=== PATIENT | female | born 1990 | race Caucasian/White ===

== ENCOUNTER 2017-08-17 13:04 | Inpatient (IN) | payer OTHER ==
[2017-08-17] MEDS ORDERED: LACTATED RINGER'S 1,000 ML IV (15:27)
[2017-08-17] MEDS ORDERED: CA GLUCONATE (GM) 10% 10ML INJ IV (15:30)
[2017-08-17 16:16] LABS: ADD MAN DIFF? NO
[2017-08-17 16:19] LABS: WHITE BLOOD COUNT 8.5 10^3/ul (4.8-10.8)
[2017-08-17 16:19] LABS: BASOPHILS % 0.4 % (0.0-2.0); EOSINOPHILS % 0.5 % (0.0-7.0); HEMATOCRIT 25.8 % (37.0-47.0); HEMOGLOBIN 8.1 g/dl (12.0-16.0); LYMPHOCYTES # 1.7 10^3/ul (0.8-2.9); LYMPHOCYTES % 19.9 % (15.0-51.0); MEAN CORPUSCULAR HGB CONC 31.4 g/dl (32.0-37.0); MEAN CORPUSCULAR VOLUME 76.6 fl (82.0-101.0); MEAN PLATELET VOLUME 10.1 fl (7.4-10.4); MONOCYTE # 0.6 10^3/ul (0.3-0.9); MONOCYTES % 7.3 % (0.0-11.0); NEUTROPHIL # 6.1 10^3/ul (1.6-7.5); NEUTROPHILS % 71.7 % (39.0-77.0); PLATELET COUNT 257 10^3/UL (140-415); RED BLOOD COUNT 3.37 10^6/ul (4.20-5.40); RED CELL DISTRIBUTION WIDTH 16.8 % (11.5-14.5)
[2017-08-17 16:37] LABS: PARTIAL THROMBOPLASTIN TIME 26.4 Sec (25.0-35.0)
[2017-08-17] MEDS: DEXTROSE 5%-LR 1,000 ML IV (16:37)
[2017-08-17 16:38] LABS: ADD UMIC YES; UR ASCORBIC ACID NEGATIVE (NEGATIVE); UR BILIRUBIN (Dip) NEGATIVE (NEGATIVE); UR BLOOD (Dip) NEGATIVE (NEGATIVE); UR CLARITY CLOUDY (CLEAR); UR COLOR AMBER (YELLOW); UR GLUCOSE (Dip) NEGATIVE (NEGATIVE); UR KETONES (Dip) TRACE mg/dL (NEGATIVE); UR LEUKOCYTE ESTERASE (Dip) NEGATIVE Leu/ul (NEGATIVE); UR MUCUS MANY /HPF (NONE SEEN); UR NITRITE (Dip) NEGATIVE (NEGATIVE); UR RBC 2 /HPF (0-5); UR SPECIFIC GRAVITY (Dip) 1.035 (1.003-1.030); UR SQUAMOUS EPITHELIAL CELL FEW /HPF (FEW); UR TOTAL PROTEIN (Dip) 3+ mg/dl (NEGATIVE); UR UROBILINOGEN (Dip) NEGATIVE (NEGATIVE); UR WBC 7 /HPF (0-5)
[2017-08-17] MEDS: MAGNESIUM SULFATE 4 GM/100 ML 100 ML IV (16:42)
[2017-08-17] MEDS ORDERED: LABETALOL HCL 20MG INJ (16:46)
[2017-08-17] MEDS: LABETALOL HCL 20MG INJ IV (16:50)
[2017-08-17] MEDS: MAGNESIUM SULFATE 20 GM/500 ML 500 ML IV (16:57)
[2017-08-17] MEDS: ACETAMINOPHEN 325 MG TAB PO (16:58)
[2017-08-17] MEDS: BETAMET NA PHOS/AC(6 MG/ML) 5ML INJ IM (16:58)
[2017-08-17] MEDS ORDERED: LABETALOL HCL 20MG INJ IV (17:00)
[2017-08-17 17:29] LABS: ALANINE AMINOTRANSFERASE 22 IU/L (13-69); ALBUMIN 3.1 g/dl (3.3-4.9); ALKALINE PHOSPHATASE 94 IU/L (42-121); ANION GAP 10 (8-16); ASPARTATE AMINO TRANSFERASE 20 IU/L (15-46); BILIRUBIN,INDIRECT 0.3 mg/dl (0-1.1); BILIRUBIN,TOTAL 0.3 mg/dl (0.2-1.3); BLOOD UREA NITROGEN 14 mg/dl (7-20); CALCIUM 8.2 mg/dl (8.4-10.2); CARBON DIOXIDE 22 mmol/L (21-31); CHLORIDE 108 mmol/L (97-110); CREATININE 0.71 mg/dl (0.44-1.00); GLUCOSE 72 mg/dl (70-220); LACTATE DEHYDROGENASE 547 IU/L (313-618); PHOSPHORUS 3.6 mg/dl (2.5-4.9); POTASSIUM 4.2 mmol/L (3.5-5.1); SODIUM 136 mmol/L (135-144); TOTAL PROTEIN 6.1 g/dl (6.1-8.1)
[2017-08-17] MEDS: SOD FERRIC GLUC COMPLX 125 MG in SOD CHLORIDE 0.9% 100 ML IVPB (20:20)
[2017-08-17] MEDS ORDERED: FERROUS SULFATE (EC) 325 MG TAB PO (21:00)
[2017-08-17] MEDS: LABETALOL 200 MG TAB PO (21:12)
[2017-08-18] MEDS: ACETAMINOPHEN 325 MG TAB PO (01:17)
[2017-08-18 01:55] LABS: MAGNESIUM 6.2 mg/dl (1.7-2.5)
[2017-08-18] MEDS: MAGNESIUM SULFATE 20 GM/500 ML 500 ML IV (04:43)
[2017-08-18] MEDS: DEXTROSE 5%-LR 1,000 ML IV ×2 (07:19→19:10)
[2017-08-18] MEDS: LABETALOL 200 MG TAB PO ×2 (08:38→21:00)
[2017-08-18 08:40] LABS: MAGNESIUM 7.5 mg/dl (1.7-2.5)
[2017-08-18] MEDS: DOCUSATE SODIUM 100 MG CAP PO (09:00)
[2017-08-18] MEDS: PRENATAL VITAMIN PO (09:00)
[2017-08-18 09:29] LABS: ADD MAN DIFF? NO
[2017-08-18 09:33] LABS: WHITE BLOOD COUNT 8.1 10^3/ul (4.8-10.8)
[2017-08-18 09:33] LABS: BASOPHILS % 0.1 % (0.0-2.0); LYMPHOCYTES % 12.3 % (15.0-51.0); MEAN CORPUSCULAR HEMOGLOBIN 23.8 pg (29.0-33.0); MEAN CORPUSCULAR VOLUME 74.4 fl (82.0-101.0); MEAN PLATELET VOLUME 10.3 fl (7.4-10.4); MONOCYTE # 0.3 10^3/ul (0.3-0.9); MONOCYTES % 4.2 % (0.0-11.0); NEUTROPHIL # 6.7 10^3/ul (1.6-7.5); NEUTROPHILS % 82.4 % (39.0-77.0); NUCLEATED RED BLOOD CELLS% 0.2 /100WBC (0.0-0.0); PLATELET COUNT 301 10^3/UL (140-415); RED BLOOD COUNT 3.36 10^6/ul (4.20-5.40); RED CELL DISTRIBUTION WIDTH 16.9 % (11.5-14.5)
[2017-08-18 09:48] LABS: ALANINE AMINOTRANSFERASE 24 IU/L (13-69); ALKALINE PHOSPHATASE 104 IU/L (42-121); ANION GAP 12 (8-16); ASPARTATE AMINO TRANSFERASE 17 IU/L (15-46); BILIRUBIN,INDIRECT 0.3 mg/dl (0-1.1); BILIRUBIN,TOTAL 0.3 mg/dl (0.2-1.3); BLOOD UREA NITROGEN 10 mg/dl (7-20); CARBON DIOXIDE 19 mmol/L (21-31); CHLORIDE 103 mmol/L (97-110); CREATININE 0.67 mg/dl (0.44-1.00); GLUCOSE 129 mg/dl (70-220); POTASSIUM 4.2 mmol/L (3.5-5.1); SODIUM 130 mmol/L (135-144)
[2017-08-18] MEDS: BETAMET NA PHOS/AC(6 MG/ML) 5ML INJ IM (09:50)
[2017-08-18 10:12] LABS: INR 0.93; PARTIAL THROMBOPLASTIN TIME 22.7 Sec (25.0-35.0); PROTIME 12.6 Sec (11.9-14.9)
[2017-08-18] MEDS: LACTATED RINGER'S 1,000 ML IV (10:31)
[2017-08-18] MEDS: SOD CHLORIDE 0.9% 1,000 ML IV (11:11)
[2017-08-18 11:21] LABS: IMMEDIATE SPIN CROSSMATCH 1 4
[2017-08-18 13:47] LABS: MAGNESIUM 5.8 mg/dl (1.7-2.5)
[2017-08-18 15:02] LABS: COLLECTION PERIOD 24 hrs
[2017-08-18 15:25] LABS: COLLECTION PERIOD 24 hrs; SCRET 0.67 mg/dl (0.44-1.00)
[2017-08-18 15:26] LABS: VOLUME 1250 ml/24hrs; VOLUME 1250 mls
[2017-08-18 16:15] LABS: CREATININE 0.73 mg/dl (0.44-1.00)
[2017-08-18 16:39] LABS: CREATININE CLEARANCE 94.8 mls/min (84.0-162.0)
[2017-08-18 16:47] LABS: 24HR URINE TOTAL PROTEIN > 600.0 mg/24hrs (42.0-225.0)
[2017-08-18 17:43] LABS: MAGNESIUM 5.1 mg/dl (1.7-2.5)
[2017-08-18 20:41] LABS: HEPATITIS B SURFACE ANTIGEN NEGATIVE (NEGATIVE)
[2017-08-18 21:33] LABS: RAPID PLASMA REAGIN NONREACTIVE (NR)
[2017-08-19] MEDS: LACTATED RINGER'S 1,000 ML IV ×4 (02:32→19:00)
[2017-08-19] MEDS: NACL 0.9% 3 ML SYG IV ×3 (08:05→22:26)
[2017-08-19] MEDS: DEXTROSE 5%-LR 1,000 ML IV ×2 (08:30→21:50)
[2017-08-19] MEDS: PRENATAL VITAMIN PO (09:00)
[2017-08-19] MEDS: DOCUSATE SODIUM 100 MG CAP PO (09:00)
[2017-08-19] MEDS: LABETALOL 200 MG TAB PO ×2 (09:00→12:07)
[2017-08-19 14:12] LABS: ADD MAN DIFF? NO
[2017-08-19 14:17] LABS: BASOPHILS % 0.1 % (0.0-2.0); HEMOGLOBIN 10.5 g/dl (12.0-16.0); LYMPHOCYTES # 1.2 10^3/ul (0.8-2.9); LYMPHOCYTES % 9.9 % (15.0-51.0); MEAN CORPUSCULAR HEMOGLOBIN 25.5 pg (29.0-33.0); MEAN CORPUSCULAR HGB CONC 32.8 g/dl (32.0-37.0); MEAN CORPUSCULAR VOLUME 77.7 fl (82.0-101.0); MEAN PLATELET VOLUME 10.2 fl (7.4-10.4); MONOCYTE # 0.7 10^3/ul (0.3-0.9); MONOCYTES % 6.2 % (0.0-11.0); NEUTROPHIL # 9.8 10^3/ul (1.6-7.5); NUCLEATED RED BLOOD CELLS # 0.1 10^3/ul (0.0-0.0); NUCLEATED RED BLOOD CELLS% 0.5 /100WBC (0.0-0.0); PLATELET COUNT 291 10^3/UL (140-415); RED BLOOD COUNT 4.12 10^6/ul (4.20-5.40); RED CELL DISTRIBUTION WIDTH 18.6 % (11.5-14.5)
[2017-08-20] MEDS: LACTATED RINGER'S 1,000 ML IV ×3 (03:04→19:09)
[2017-08-20] MEDS: LABETALOL 200 MG TAB PO ×2 (06:51→18:46)
[2017-08-20] MEDS: NACL 0.9% 3 ML SYG IV ×2 (08:05→18:49)
[2017-08-20] MEDS: PRENATAL VITAMIN PO (09:06)
[2017-08-20] MEDS: DOCUSATE SODIUM 100 MG CAP PO (09:06)
[2017-08-20] MEDS: DEXTROSE 5%-LR 1,000 ML IV (11:10)
[2017-08-21] MEDS: LABETALOL 100 MG TAB PO ×2 (02:37→07:14)
[2017-08-21] MEDS: LACTATED RINGER'S 1,000 ML IV (03:04)
[2017-08-21 07:29] LABS: ADD MAN DIFF? NO
[2017-08-21 07:34] LABS: WHITE BLOOD COUNT 11.1 10^3/ul (4.8-10.8)
[2017-08-21 07:34] LABS: BASOPHILS % 0.1 % (0.0-2.0); EOSINOPHILS % 0.2 % (0.0-7.0); HEMATOCRIT 29.3 % (37.0-47.0); HEMOGLOBIN 9.5 g/dl (12.0-16.0); LYMPHOCYTES # 2.4 10^3/ul (0.8-2.9); LYMPHOCYTES % 21.4 % (15.0-51.0); MEAN CORPUSCULAR HEMOGLOBIN 25.7 pg (29.0-33.0); MEAN CORPUSCULAR HGB CONC 32.4 g/dl (32.0-37.0); MEAN CORPUSCULAR VOLUME 79.4 fl (82.0-101.0); MEAN PLATELET VOLUME 9.8 fl (7.4-10.4); MONOCYTE # 1.1 10^3/ul (0.3-0.9); MONOCYTES % 9.8 % (0.0-11.0); NEUTROPHIL # 7.5 10^3/ul (1.6-7.5); NEUTROPHILS % 67.4 % (39.0-77.0); NUCLEATED RED BLOOD CELLS% 0.4 /100WBC (0.0-0.0); PLATELET COUNT 217 10^3/UL (140-415); RED BLOOD COUNT 3.69 10^6/ul (4.20-5.40); RED CELL DISTRIBUTION WIDTH 19.2 % (11.5-14.5)
[2017-08-21 07:57] LABS: ALANINE AMINOTRANSFERASE 56 IU/L (13-69); ALBUMIN 2.4 g/dl (3.3-4.9); ALBUMIN/GLOBULIN RATIO 0.88; ALKALINE PHOSPHATASE 75 IU/L (42-121); ANION GAP 7 (8-16); ASPARTATE AMINO TRANSFERASE 65 IU/L (15-46); BILIRUBIN,INDIRECT 0.3 mg/dl (0-1.1); BILIRUBIN,TOTAL 0.3 mg/dl (0.2-1.3); BLOOD UREA NITROGEN 11 mg/dl (7-20); CALCIUM 7.8 mg/dl (8.4-10.2); CARBON DIOXIDE 22 mmol/L (21-31); CHLORIDE 108 mmol/L (97-110); CREATININE 0.64 mg/dl (0.44-1.00); GLUCOSE 73 mg/dl (70-220); POTASSIUM 4.2 mmol/L (3.5-5.1); SODIUM 133 mmol/L (135-144); TOTAL PROTEIN 5.1 g/dl (6.1-8.1); URIC ACID 6.4 mg/dl (3.1-7.9)
[2017-08-21 08:15] LABS: INR 0.93; PROTIME 12.6 Sec (11.9-14.9)
[2017-08-21 08:16] LABS: PARTIAL THROMBOPLASTIN TIME 25.5 Sec (25.0-35.0)
[2017-08-21] MEDS ORDERED: hydrALAzine 20 MG INJ (09:20)
[2017-08-21] MEDS: hydrALAzine 20 MG INJ IV (09:22)
[2017-08-21] MEDS ORDERED: CEFAZOLIN 2 GM/50 ML (PMX) 50 ML IVPB (09:35)
[2017-08-21] MEDS ORDERED: KETOROLAC 30 MG INJ (09:55)
[2017-08-21] MEDS ORDERED: morphine SULFATE/PF (10 MG/10 ML) INJ (09:55)
[2017-08-21] MEDS ORDERED: OXYTOCIN 30 UNITS/LR 500 ML IV ×3 (09:55→12:18)
[2017-08-21] MEDS ORDERED: ONDANSETRON 4 MG INJ (09:55)
[2017-08-21] MEDS ORDERED: METOCLOPRAMIDE 10 MG INJ (09:55)
[2017-08-21] MEDS: CEFAZOLIN 2 GM/50 ML (PMX) 50 ML IVPB (10:00)
[2017-08-21] MEDS ORDERED: FENTAnyl 50 MCG/ML VIAL (10:23)
[2017-08-21] MEDS ORDERED: PROPOFOL 20 ML (10:29)
[2017-08-21] MEDS ORDERED: DIPHENHYDRAMINE 50 MG INJ (11:00)
[2017-08-21] MEDS ORDERED: MIDAZOLAM 1 MG/ML 2 ML INJ (11:03)
[2017-08-21] MEDS: MAGNESIUM SULFATE 20 GM/500 ML 500 ML IV ×2 (11:48→18:54)
[2017-08-21] MEDS ORDERED: morphine 2 MG INJ IV (12:00)
[2017-08-21] MEDS ORDERED: morphine 4 MG/ML VIAL IV (12:00)
[2017-08-21] MEDS ORDERED: OXYCODONE/ACETAMINOPHEN (5/325) TAB PO ×2 (12:00)
[2017-08-21] MEDS ORDERED: ONDANSETRON 4 MG INJ IV ×2 (12:00)
[2017-08-21] MEDS ORDERED: METOCLOPRAMIDE 10 MG INJ IV (12:00)
[2017-08-21] MEDS ORDERED: NALOXONE (0.4 MG/ML) INJ IV (12:00)
[2017-08-21] MEDS ORDERED: HYDROmorphONE (0.2 MG/ML) 10ML SYG IV ×2 (12:00)
[2017-08-21] MEDS: KETOROLAC 30 MG INJ IV ×2 (12:28→23:27)
[2017-08-21] MEDS: OXYTOCIN 30 UNITS/LR 500 ML IV ×2 (12:31→18:51)
[2017-08-21] MEDS: DIPHENHYDRAMINE 50 MG INJ IV (15:19)
[2017-08-21] MEDS: HYDROmorphONE (0.2 MG/ML) 10ML SYG IV (15:35)
[2017-08-21] MEDS: MAGNESIUM SULFATE 2 GM/50 ML 50 ML IVPB (18:00)
[2017-08-21] MEDS: LABETALOL 200 MG TAB PO (18:01)
[2017-08-21 19:42] LABS: MAGNESIUM 5.6 mg/dl (1.7-2.5)
[2017-08-22 00:48] LABS: MAGNESIUM 6.7 mg/dl (1.7-2.5)
[2017-08-22] MEDS: DIPHENHYDRAMINE 50 MG INJ IV (00:54)
[2017-08-22] MEDS: OXYTOCIN 30 UNITS/LR 500 ML IV ×2 (01:16→07:49)
[2017-08-22] MEDS: MAGNESIUM SULFATE 20 GM/500 ML 500 ML IV (04:22)
[2017-08-22] MEDS: KETOROLAC 30 MG INJ IV (05:44)
[2017-08-22] MEDS: LABETALOL 200 MG TAB PO ×2 (07:47→20:55)
[2017-08-22 08:50] LABS: ADD MAN DIFF? NO
[2017-08-22 08:54] LABS: BASOPHILS % 0.3 % (0.0-2.0); EOSINOPHILS # 0.1 10^3/ul (0.0-0.5); EOSINOPHILS % 0.6 % (0.0-7.0); HEMATOCRIT 30.2 % (37.0-47.0); HEMOGLOBIN 10.1 g/dl (12.0-16.0); LYMPHOCYTES # 1.8 10^3/ul (0.8-2.9); LYMPHOCYTES % 15.1 % (15.0-51.0); MEAN CORPUSCULAR HEMOGLOBIN 26.2 pg (29.0-33.0); MEAN CORPUSCULAR HGB CONC 33.4 g/dl (32.0-37.0); MEAN CORPUSCULAR VOLUME 78.2 fl (82.0-101.0); MEAN PLATELET VOLUME 9.9 fl (7.4-10.4); MONOCYTE # 0.6 10^3/ul (0.3-0.9); MONOCYTES % 4.8 % (0.0-11.0); NEUTROPHIL # 9.5 10^3/ul (1.6-7.5); NEUTROPHILS % 78.7 % (39.0-77.0); PLATELET COUNT 204 10^3/UL (140-415); RED BLOOD COUNT 3.86 10^6/ul (4.20-5.40); RED CELL DISTRIBUTION WIDTH 19.4 % (11.5-14.5)
[2017-08-22 09:40] LABS: MAGNESIUM 7.2 mg/dl (1.7-2.5)
[2017-08-22] MEDS: morphine 2 MG INJ IV (09:57)
[2017-08-22] MEDS: IBUPROFEN 800 MG TAB PO ×2 (12:28→17:31)
[2017-08-22 13:11] LABS: MAGNESIUM 5.3 mg/dl (1.7-2.5)
[2017-08-22] MEDS: OXYCODONE/ACETAMINOPHEN (5/325) TAB PO ×3 (13:20→19:59)
[2017-08-22] MEDS: hydrALAzine 20 MG INJ IV (16:27)
[2017-08-22] MEDS ORDERED: OXYCODONE/ACETAMINOPHEN (5/325) TAB PO (17:00)
[2017-08-22] MEDS: NIFEdipine (XL) 30 MG TAB PO (17:32)
[2017-08-22] MEDS: DOCUSATE SODIUM 100 MG CAP PO (20:55)
[2017-08-22] MEDS: HYDROmorphONE 0.5 MG/0.5 ML SYG IV (22:56)
[2017-08-22] MEDS ORDERED: HYDROmorphONE 1 MG/ML SYG IV (23:00)
[2017-08-23] MEDS: OXYCODONE/ACETAMINOPHEN (5/325) TAB PO ×7 (01:37→19:48)
[2017-08-23] MEDS: HYDROmorphONE 0.5 MG/0.5 ML SYG IV (03:08)
[2017-08-23] MEDS ORDERED: NA PHOSPHATE/BIPHOS 133 ML ENEMA PR (05:03)
[2017-08-23] MEDS: IBUPROFEN 800 MG TAB PO ×5 (05:33→23:50)
[2017-08-23] MEDS: NA PHOSPHATE/BIPHOS 133 ML ENEMA PR (05:33)
[2017-08-23] MEDS: LABETALOL 200 MG TAB PO ×2 (07:33→20:52)
[2017-08-23] MEDS: NIFEdipine (XL) 30 MG TAB PO (08:39)
[2017-08-23] MEDS: DOCUSATE SODIUM 100 MG CAP PO ×2 (08:39→20:50)
[2017-08-23] MEDS: HYDROmorphONE 4 MG TAB PO (18:22)
[2017-08-24] MEDS: OXYCODONE/ACETAMINOPHEN (5/325) TAB PO ×5 (00:43→22:37)
[2017-08-24] MEDS: IBUPROFEN 800 MG TAB PO ×4 (07:00→23:42)
[2017-08-24] MEDS: DOCUSATE SODIUM 100 MG CAP PO ×2 (08:36→21:21)
[2017-08-24] MEDS: NIFEdipine (XL) 30 MG TAB PO (08:36)
[2017-08-24] MEDS: LABETALOL 200 MG TAB PO ×2 (08:36→21:21)
[2017-08-25] MEDS: OXYCODONE/ACETAMINOPHEN (5/325) TAB PO ×3 (03:45→19:43)
[2017-08-25] MEDS: IBUPROFEN 800 MG TAB PO ×3 (07:00→18:28)
[2017-08-25] MEDS: NIFEdipine (XL) 30 MG TAB PO ×2 (09:14→11:40)
[2017-08-25] MEDS: DOCUSATE SODIUM 100 MG CAP PO ×2 (09:14→21:26)
[2017-08-25] MEDS: LABETALOL 200 MG TAB PO ×2 (09:14→21:27)
[2017-08-25] MEDS: NA PHOSPHATE/BIPHOS 133 ML ENEMA PR (11:30)
[2017-08-26] MEDS: OXYCODONE/ACETAMINOPHEN (5/325) TAB PO ×4 (00:11→22:36)
[2017-08-26] MEDS: IBUPROFEN 800 MG TAB PO ×4 (00:11→17:30)
[2017-08-26] MEDS: NA PHOSPHATE/BIPHOS 133 ML ENEMA PR (03:15)
[2017-08-26] MEDS: NIFEdipine (XL) 60 MG TAB PO (08:04)
[2017-08-26] MEDS: LABETALOL 200 MG TAB PO ×2 (08:05→20:41)
[2017-08-26] MEDS: DOCUSATE SODIUM 100 MG CAP PO ×2 (08:05→20:38)
[2017-08-26] MEDS ORDERED: FUROSEMIDE 20 MG TAB PO (17:00)
[2017-08-26] MEDS: LABETALOL 100 MG TAB PO (17:09)
[2017-08-26] MEDS: FUROSEMIDE 40 MG TAB PO (17:32)
[2017-08-27] MEDS: IBUPROFEN 800 MG TAB PO ×4 (00:33→18:04)
[2017-08-27] MEDS: OXYCODONE/ACETAMINOPHEN (5/325) TAB PO ×3 (03:16→21:32)
[2017-08-27] MEDS: DOCUSATE SODIUM 100 MG CAP PO ×2 (09:12→21:32)
[2017-08-27] MEDS: LABETALOL 200 MG TAB PO ×3 (09:13→21:32)
[2017-08-27] MEDS: NIFEdipine (XL) 60 MG TAB PO (09:13)
[2017-08-28] MEDS: IBUPROFEN 800 MG TAB PO ×4 (00:34→17:39)
[2017-08-28] MEDS: OXYCODONE/ACETAMINOPHEN (5/325) TAB PO ×3 (02:24→20:18)
[2017-08-28] MEDS: LABETALOL 200 MG TAB PO ×3 (08:38→21:00)
[2017-08-28] MEDS: NIFEdipine (XL) 60 MG TAB PO (08:38)
[2017-08-28] MEDS: DOCUSATE SODIUM 100 MG CAP PO ×2 (08:39→20:18)
[2017-08-29] MEDS: OXYCODONE/ACETAMINOPHEN (5/325) TAB PO ×2 (04:30→20:02)
[2017-08-29] MEDS: IBUPROFEN 800 MG TAB PO ×3 (05:49→12:11)
[2017-08-29] MEDS: DOCUSATE SODIUM 100 MG CAP PO ×2 (09:15→20:02)
[2017-08-29] MEDS: NIFEdipine (XL) 60 MG TAB PO (09:18)
[2017-08-29] MEDS: LABETALOL 200 MG TAB PO ×3 (09:19→20:56)
[2017-08-29 13:43] LABS: ADD MAN DIFF? NO
[2017-08-29 13:54] LABS: BASOPHILS % 0.5 % (0.0-2.0); EOSINOPHILS # 0.2 10^3/ul (0.0-0.5); EOSINOPHILS % 1.9 % (0.0-7.0); HEMATOCRIT 30.6 % (37.0-47.0); LYMPHOCYTES # 1.5 10^3/ul (0.8-2.9); LYMPHOCYTES % 18.7 % (15.0-51.0); MEAN CORPUSCULAR HEMOGLOBIN 27.2 pg (29.0-33.0); MEAN CORPUSCULAR HGB CONC 32.7 g/dl (32.0-37.0); MEAN CORPUSCULAR VOLUME 83.4 fl (82.0-101.0); MEAN PLATELET VOLUME 9.6 fl (7.4-10.4); MONOCYTE # 0.4 10^3/ul (0.3-0.9); MONOCYTES % 5.1 % (0.0-11.0); NEUTROPHIL # 5.9 10^3/ul (1.6-7.5); NEUTROPHILS % 73.3 % (39.0-77.0); PLATELET COUNT 267 10^3/UL (140-415); RED BLOOD COUNT 3.67 10^6/ul (4.20-5.40); RED CELL DISTRIBUTION WIDTH 21.4 % (11.5-14.5)
[2017-08-29 14:01] LABS: URIC ACID 5.9 mg/dl (3.1-7.9)
[2017-08-29 14:02] LABS: ALANINE AMINOTRANSFERASE 53 IU/L (13-69); ALBUMIN 3.4 g/dl (3.3-4.9); ALKALINE PHOSPHATASE 89 IU/L (42-121); ANION GAP 11 (8-16); ASPARTATE AMINO TRANSFERASE 33 IU/L (15-46); BILIRUBIN,INDIRECT 0.8 mg/dl (0-1.1); BILIRUBIN,TOTAL 0.8 mg/dl (0.2-1.3); BLOOD UREA NITROGEN 11 mg/dl (7-20); CALCIUM 9.2 mg/dl (8.4-10.2); CARBON DIOXIDE 24 mmol/L (21-31); CHLORIDE 106 mmol/L (97-110); CREATININE 0.58 mg/dl (0.44-1.00); GLUCOSE 111 mg/dl (70-220); SODIUM 137 mmol/L (135-144); TOTAL PROTEIN 6.8 g/dl (6.1-8.1)
[2017-08-29 15:15] LABS: ADD UMIC YES; UR ASCORBIC ACID NEGATIVE (NEGATIVE); UR BILIRUBIN (Dip) NEGATIVE (NEGATIVE); UR BLOOD (Dip) NEGATIVE (NEGATIVE); UR CLARITY CLEAR (CLEAR); UR COLOR YELLOW (YELLOW); UR GLUCOSE (Dip) NEGATIVE (NEGATIVE); UR KETONES (Dip) NEGATIVE (NEGATIVE); UR LEUKOCYTE ESTERASE (Dip) NEGATIVE Leu/ul (NEGATIVE); UR NITRITE (Dip) NEGATIVE (NEGATIVE); UR RBC 0 /HPF (0-5); UR SPECIFIC GRAVITY (Dip) 1.012 (1.003-1.030); UR TOTAL PROTEIN (Dip) 2+ mg/dl (NEGATIVE); UR UROBILINOGEN (Dip) NEGATIVE (NEGATIVE); UR WBC 2 /HPF (0-5)
[2017-08-29] MEDS ORDERED: ACETAMINOPHEN 325 MG TAB PO (17:00)
[2017-08-30] MEDS: OXYCODONE/ACETAMINOPHEN (5/325) TAB PO ×3 (01:56→17:41)
[2017-08-30] MEDS: DOCUSATE SODIUM 100 MG CAP PO (08:57)
[2017-08-30] MEDS: LABETALOL 200 MG TAB PO (08:58)
[2017-08-30] MEDS: NIFEdipine (XL) 60 MG TAB PO (09:00)
[2017-08-30] MEDS ORDERED: NIFEdipine (XL) 60 MG TAB PO (09:00)
[2017-08-30] MEDS: LABETALOL 100 MG TAB PO (13:32)
== END 2017-08-30 21:15 | disposition home or self-care (01) | DRG 766 ==
LOC: PP1 13:04 → L-D 08-18 09:24 → PP1 08-21 16:14
PROC: 10D00Z1 Extraction of Products of Conception, Low, Open Approach (ICD-10-PCS; principal; 2017-08-21 10:30)
DX: O60.14X0 Preterm labor third trimester with preterm delivery third trimester, not applicable or unspecified (principal); O99.02 Anemia complicating childbirth; O13.4 Gestational [pregnancy-induced] hypertension without significant proteinuria, complicating childbirth; O14.24 HELLP syndrome, complicating childbirth; Z3A.28 28 weeks gestation of pregnancy; Z37.0 Single live birth
CPT/HCPCS: 36430; 76815; 80053; 80069; 80076; 81001; 82565; 82575; 83615; 83735; 84156; 84560; 85025; 85384; 85610; 85730; 86592; 86850; 86900; 86901; 86920; 87340; 88307; 93970; 94760; 99464

== ENCOUNTER 2017-10-06 05:25 | Inpatient (IN) | payer OTHER ==
[2017-10-06] MEDS: ONDANSETRON 4 MG INJ IV (06:53)
[2017-10-06] MEDS: morphine 4 MG/ML VIAL IV (06:53)
[2017-10-06] MEDS: SOD CHLORIDE 0.9% 1,000 ML IV (06:53)
[2017-10-06] MEDS ORDERED: ACETAMINOPHEN 1000 MG/100 ML IVPB (07:00)
[2017-10-06] MEDS: IOHEXOL 300MG/ML 150 ML BTL (07:13)
[2017-10-06 07:15] LABS: ADD MAN DIFF? NO; BASOPHIL # 0.1 10^3/ul (0.0-0.1); BASOPHILS % 0.4 % (0.0-2.0); EOSINOPHILS % 0.2 % (0.0-7.0); HEMATOCRIT 33.3 % (37.0-47.0); HEMOGLOBIN 11.4 g/dl (12.0-16.0); LYMPHOCYTES # 1.2 10^3/ul (0.8-2.9); LYMPHOCYTES % 9.8 % (15.0-51.0); MEAN CORPUSCULAR HEMOGLOBIN 28.3 pg (29.0-33.0); MEAN CORPUSCULAR HGB CONC 34.2 g/dl (32.0-37.0); MEAN CORPUSCULAR VOLUME 82.6 fl (82.0-101.0); MEAN PLATELET VOLUME 9.3 fl (7.4-10.4); MONOCYTE # 0.9 10^3/ul (0.3-0.9); MONOCYTES % 7.1 % (0.0-11.0); NEUTROPHIL # 10.3 10^3/ul (1.6-7.5); NEUTROPHILS % 82.2 % (39.0-77.0); PLATELET COUNT 274 10^3/UL (140-415); RED BLOOD COUNT 4.03 10^6/ul (4.20-5.40); RED CELL DISTRIBUTION WIDTH 17.8 % (11.5-14.5)
[2017-10-06 07:15] LABS: WHITE BLOOD COUNT 12.6 10^3/ul (4.8-10.8)
[2017-10-06 07:19] LABS: ADD UMIC YES; UR ASCORBIC ACID NEGATIVE (NEGATIVE); UR BACTERIA FEW /HPF (NONE SEEN); UR BILIRUBIN (Dip) NEGATIVE (NEGATIVE); UR BLOOD (Dip) 1+ mg/dL (NEGATIVE); UR CLARITY SLIGHTLY CLOUDY (CLEAR); UR COLOR YELLOW (YELLOW); UR GLUCOSE (Dip) NEGATIVE (NEGATIVE); UR KETONES (Dip) 2+ mg/dL (NEGATIVE); UR LEUKOCYTE ESTERASE (Dip) NEGATIVE Leu/ul (NEGATIVE); UR MUCUS MANY /HPF (NONE SEEN); UR NITRITE (Dip) NEGATIVE (NEGATIVE); UR RBC 1 /HPF (0-5); UR SQUAMOUS EPITHELIAL CELL FEW /HPF (FEW); UR TOTAL PROTEIN (Dip) 2+ mg/dl (NEGATIVE); UR UROBILINOGEN (Dip) 1+ mg/dL (NEGATIVE); UR WBC 1 /HPF (0-5)
[2017-10-06 07:35] LABS: ALANINE AMINOTRANSFERASE 30 IU/L (13-69); ALBUMIN 4.1 g/dl (3.3-4.9); ALBUMIN/GLOBULIN RATIO 1.41; ALKALINE PHOSPHATASE 59 IU/L (42-121); ANION GAP 14 (8-16); ASPARTATE AMINO TRANSFERASE 17 IU/L (15-46); BILIRUBIN,INDIRECT 0.7 mg/dl (0-1.1); BILIRUBIN,TOTAL 0.7 mg/dl (0.2-1.3); BLOOD UREA NITROGEN 22 mg/dl (7-20); CALCIUM 9.1 mg/dl (8.4-10.2); CARBON DIOXIDE 31 mmol/L (21-31); CHLORIDE 104 mmol/L (97-110); CREATININE 0.63 mg/dl (0.44-1.00); GLUCOSE 98 mg/dl (70-220); LIPASE 43 U/L (23-300); POTASSIUM 3.9 mmol/L (3.5-5.1); SODIUM 145 mmol/L (135-144)
[2017-10-06] MEDS: PIPER-TAZO 3.375 GM IV (PMX) 100 ML IVPB ×3 (08:14→18:10)
[2017-10-06] MEDS: HYDROmorphONE 0.5 MG/0.5 ML SYG IV (08:14)
[2017-10-06] MEDS ORDERED: ACETAMINOPHEN 325 MG TAB PO ×3 (08:30→11:30)
[2017-10-06] MEDS ORDERED: ONDANSETRON 4 MG INJ IV ×4 (08:30→12:30)
[2017-10-06] MEDS: LACTATED RINGER'S 1,000 ML IV (08:49)
[2017-10-06] MEDS ORDERED: SOD CHLORIDE 0.9% 1,000 ML IV (11:04)
[2017-10-06] MEDS ORDERED: MIDAZOLAM 1 MG/ML 2 ML INJ (11:25)
[2017-10-06] MEDS ORDERED: ONDANSETRON 4 MG INJ (11:25)
[2017-10-06] MEDS ORDERED: METOCLOPRAMIDE 10 MG INJ (11:25)
[2017-10-06] MEDS ORDERED: ROPIVACAINE 0.5 % 30 ML VIAL (11:25)
[2017-10-06] MEDS ORDERED: ROCURONIUM 50 MG INJ (11:25)
[2017-10-06] MEDS ORDERED: PROPOFOL 20 ML (11:25)
[2017-10-06] MEDS ORDERED: SUCCINYLCHOLINE CHLORIDE 100 MG/5 ML SYG IV (11:25)
[2017-10-06] MEDS ORDERED: KETOROLAC 30 MG INJ (11:29)
[2017-10-06] MEDS ORDERED: NACL 0.9% 3 ML SYG IV (11:30)
[2017-10-06] MEDS ORDERED: MAGNESIUM HYDROXIDE 30ML CUP PO (11:30)
[2017-10-06] MEDS ORDERED: DOCUSATE SODIUM 100 MG CAP PO (11:30)
[2017-10-06] MEDS ORDERED: BISACODYL 10 MG SUPP PR (11:30)
[2017-10-06] MEDS ORDERED: morphine 2 MG INJ IV (11:30)
[2017-10-06] MEDS ORDERED: ACETAMINOPHEN 650 MG SUPP PR (11:30)
[2017-10-06] MEDS ORDERED: HYDROCODONE/APAP (5/325) TAB PO ×2 (11:30)
[2017-10-06] MEDS ORDERED: SOD CHLORIDE 0.9% 500 ML IV (11:30)
[2017-10-06] MEDS ORDERED: NEOSTIGMINE 3 MG/3 ML SYRINGE (11:51)
[2017-10-06] MEDS ORDERED: PHENYLephrine (100 MCG/ML) 5ML SYG (11:51)
[2017-10-06] MEDS: BUPIVACAINE 0.25% (MPF) 30 ML INJ (12:04)
[2017-10-06] MEDS: LIDOCAINE 1%/EPI 30 ML INJ (12:04)
[2017-10-06] MEDS ORDERED: DIPHENHYDRAMINE 50 MG INJ (12:25)
[2017-10-06] MEDS ORDERED: morphine (1 MG/ML) 10ML SYRINGE IV ×2 (12:30)
[2017-10-06] MEDS: DIPHENHYDRAMINE 50 MG INJ IV (12:56)
[2017-10-06] MEDS: morphine (1 MG/ML) 10ML SYRINGE IV (12:57)
[2017-10-06] MEDS: PANTOPRAZOLE 40 MG INJ IV (14:49)
[2017-10-06] MEDS: D5-NS + KCL 20 MEQ 1,000 ML IV ×2 (14:50→21:21)
[2017-10-06] MEDS: morphine 2 MG INJ IV ×2 (16:48→22:21)
[2017-10-06] MEDS: SOD CHLORIDE 0.9% 500 ML IV (22:01)
[2017-10-07] MEDS: PIPER-TAZO 3.375 GM IV (PMX) 100 ML IVPB ×4 (00:09→18:30)
[2017-10-07] MEDS: PANTOPRAZOLE 40 MG INJ IV (05:47)
[2017-10-07] MEDS: KETOROLAC 30 MG INJ IV (06:21)
[2017-10-07 06:26] LABS: ADD MAN DIFF? NO
[2017-10-07 06:33] LABS: BASOPHILS % 0.6 % (0.0-2.0); EOSINOPHILS # 0.1 10^3/ul (0.0-0.5); EOSINOPHILS % 1.7 % (0.0-7.0); HEMATOCRIT 24.2 % (37.0-47.0); HEMOGLOBIN 8.2 g/dl (12.0-16.0); LYMPHOCYTES # 1.8 10^3/ul (0.8-2.9); LYMPHOCYTES % 28.5 % (15.0-51.0); MEAN CORPUSCULAR HEMOGLOBIN 28.5 pg (29.0-33.0); MEAN CORPUSCULAR HGB CONC 33.9 g/dl (32.0-37.0); MEAN PLATELET VOLUME 9.5 fl (7.4-10.4); MONOCYTE # 0.8 10^3/ul (0.3-0.9); MONOCYTES % 12.7 % (0.0-11.0); NEUTROPHIL # 3.6 10^3/ul (1.6-7.5); NEUTROPHILS % 56.3 % (39.0-77.0); PLATELET COUNT 206 10^3/UL (140-415); RED BLOOD COUNT 2.88 10^6/ul (4.20-5.40); RED CELL DISTRIBUTION WIDTH 18.6 % (11.5-14.5)
[2017-10-07 06:33] LABS: WHITE BLOOD COUNT 6.3 10^3/ul (4.8-10.8)
[2017-10-07 07:09] LABS: ALANINE AMINOTRANSFERASE 34 IU/L (13-69); ALBUMIN 2.6 g/dl (3.3-4.9); ALKALINE PHOSPHATASE 39 IU/L (42-121); ANION GAP 12 (8-16); ASPARTATE AMINO TRANSFERASE 21 IU/L (15-46); BILIRUBIN,INDIRECT 1.3 mg/dl (0-1.1); BILIRUBIN,TOTAL 1.3 mg/dl (0.2-1.3); BLOOD UREA NITROGEN 13 mg/dl (7-20); CALCIUM 7.9 mg/dl (8.4-10.2); CARBON DIOXIDE 26 mmol/L (21-31); CHLORIDE 109 mmol/L (97-110); CHOL/HDL RATIO 2.2 RATIO; CHOLESTEROL 74 mg/dl (100-200); CREATININE 0.76 mg/dl (0.44-1.00); GLUCOSE 88 mg/dl (70-220); HDL CHOLESTEROL 33 mg/dl (33-83); LDL CHOLESTEROL,CALCULATED 32 mg/dl; MAGNESIUM 1.8 mg/dl (1.7-2.5); PHOSPHORUS 3.7 mg/dl (2.5-4.9); POTASSIUM 3.8 mmol/L (3.5-5.1); SODIUM 143 mmol/L (135-144); TOTAL PROTEIN 5.2 g/dl (6.1-8.1); TRIGLYCERIDES 45 mg/dl (0-149)
[2017-10-07 07:21] LABS: FREE THYROXINE INDEX (Calc) 2.54 ug/ml (0.65-3.89); T3 UPTAKE 40.9 % (23.5-40.5); T4 (THYROXINE) 6.2 ug/dl (5.5-11.0)
[2017-10-07 07:35] LABS: THYROID STIMULATING HORMONE 0.989 MIU/L (0.465-4.680)
[2017-10-07 07:53] LABS: HEMOGLOBIN A1C 5.2 % (0-5.9)
[2017-10-07] MEDS: D5-NS + KCL 20 MEQ 1,000 ML IV ×2 (08:59→17:21)
[2017-10-07] MEDS: INFLUENZA VIRUS VACCINE 0.5 ML SYG IM* (09:00)
[2017-10-07] MEDS: ENOXAPARIN 40 MG/0.4 ML SYG SC (09:00)
[2017-10-07 12:35] LABS: HEMATOCRIT 24.6 % (37.0-47.0); HEMOGLOBIN 8.3 g/dl (12.0-16.0)
[2017-10-07 12:56] LABS: IRON 18 ug/dl (35-150)
[2017-10-07 13:05] LABS: % IRON SATURATION 7 % SAT (22-52); TOTAL IRON BINDING CAPACITY 254 ug/dl (241-421)
[2017-10-07] MEDS: IBUPROFEN 600 MG TAB PO (13:28)
[2017-10-07] MEDS: OXYCODONE/ACETAMINOPHEN (5/325) TAB PO (13:56)
[2017-10-07] MEDS ORDERED: METHOCARBAMOL 500 MG TAB PO (18:00)
[2017-10-07] MEDS: OXYCODONE/ACETAMINOPHEN (10/325) TAB PO ×2 (18:39→22:27)
[2017-10-08] MEDS: PIPER-TAZO 3.375 GM IV (PMX) 100 ML IVPB ×3 (00:03→12:14)
[2017-10-08] MEDS: D5-NS + KCL 20 MEQ 1,000 ML IV ×3 (03:21→13:21)
[2017-10-08] MEDS: OXYCODONE/ACETAMINOPHEN (10/325) TAB PO ×3 (05:19→13:47)
[2017-10-08] MEDS: PANTOPRAZOLE 40 MG INJ IV (05:19)
[2017-10-08 05:45] LABS: ADD MAN DIFF? NO
[2017-10-08 05:50] LABS: WHITE BLOOD COUNT 5.3 10^3/ul (4.8-10.8)
[2017-10-08 05:50] LABS: BASOPHIL # 0.1 10^3/ul (0.0-0.1); BASOPHILS % 0.9 % (0.0-2.0); EOSINOPHILS # 0.2 10^3/ul (0.0-0.5); EOSINOPHILS % 4.1 % (0.0-7.0); HEMATOCRIT 24.1 % (37.0-47.0); HEMOGLOBIN 8.2 g/dl (12.0-16.0); LYMPHOCYTES # 2.5 10^3/ul (0.8-2.9); LYMPHOCYTES % 47.3 % (15.0-51.0); MEAN CORPUSCULAR HEMOGLOBIN 28.4 pg (29.0-33.0); MEAN CORPUSCULAR VOLUME 83.4 fl (82.0-101.0); MEAN PLATELET VOLUME 9.9 fl (7.4-10.4); MONOCYTE # 0.5 10^3/ul (0.3-0.9); MONOCYTES % 9.6 % (0.0-11.0); NEUTROPHILS % 37.9 % (39.0-77.0); PLATELET COUNT 197 10^3/UL (140-415); RED BLOOD COUNT 2.89 10^6/ul (4.20-5.40); RED CELL DISTRIBUTION WIDTH 18.7 % (11.5-14.5)
[2017-10-08] MEDS: ENOXAPARIN 40 MG/0.4 ML SYG SC (06:35)
[2017-10-08 06:39] LABS: ANION GAP 9 (8-16); BLOOD UREA NITROGEN 8 mg/dl (7-20); CALCIUM 8.4 mg/dl (8.4-10.2); CARBON DIOXIDE 29 mmol/L (21-31); CHLORIDE 109 mmol/L (97-110); CREATININE 0.71 mg/dl (0.44-1.00); GLUCOSE 85 mg/dl (70-220); POTASSIUM 3.7 mmol/L (3.5-5.1); SODIUM 143 mmol/L (135-144)
[2017-10-08] MEDS: SOD FERRIC GLUC COMPLX 125 MG in SOD CHLORIDE 0.9% 100 ML IVPB (13:46)
== END 2017-10-08 18:00 | disposition home or self-care (01) | DRG 343 ==
LOC: E/R 05:25 → MS2 10:29
PROC: 0DTJ4ZZ Resection of Appendix, Percutaneous Endoscopic Approach (ICD-10-PCS; principal; 2017-10-06 11:30)
DX: K35.80 Unspecified acute appendicitis (principal); D64.9 Anemia, unspecified
CPT/HCPCS: 36415; 74177; 76830; 76856; 80048; 80053; 80061; 81001; 83036; 83540; 83690; 83735; 84100; 84436; 84443; 84479; 85014; 85018; 85025; 88304; 96374; 96375; 99285-25